=== PATIENT | male | born 1965 | race Caucasian/White ===

== ENCOUNTER → 2016-03-28 | Outpatient (CLI) | payer OTHER ==
--- NOTE | 2016-03-28 19:26 | CONS ---
This is a 50-year-old male patient who is coming in for further evaluation regarding his obstructive sleep apnea. The patient used to live in [place] and his initial sleep evaluation was done at [facility]. He has a home sleep study that showed mild obstructive sleep apnea and he was found to have an AHI of 6.9. Subsequently he was given CPAP at a pressure of 9 cm of water and he is utilizing a Simplus full face mask. His main complaint is that occasionally he is unable to tolerate the mask and he pulls it off and he is looking for alternative masks. He was also told to snore and have some leaks around the mask while using the treatment. I checked his CPAP. I checked his compliance data and the numbers are looking good. His CPAP use has been 100% of the time and CPAP use for more than 4 hours at 25 out of 30, which is at 75%. His leak factor is 14 L and his AHI while on treatment is down to 1.1. He has lost around 20 pounds since his last evaluation and may be partly contributing to the poor tolerability to the CPAP, especially that his baseline SOFI was quiet mild. PAST MEDICAL HISTORY: SOFI, hypothyroidism and diabetes mellitus. Past surgical history is broken wrist. Drug allergies are not known. Medication includes metformin. SOCIAL HISTORY: Nonsmoker. No history of alcohol. No history of IV drugs. Works in construction. FAMILY HISTORY: Noncontributory. REVIEW OF SYSTEMS: Twelve-point review of systems was done. Positive findings are all mentioned above in history of present illness. BP is 139/89, pulse 92, respirations 16, temperature 97.6, saturation 95% on room air. Weight is 201. Height is 5 feet 11 inches and neck size 15-3/4 inches. GENERAL APPEARANCE: Calm, comfortable. HEENT: Negative for JVD. There is no goiter or neck mass. LUNGS: Clear to auscultation. Heart sounds are regular rate and rhythm. Normal S1, S2. ABDOMEN: Soft, nontender. No organomegaly. EXTREMITIES: No edema. No cyanosis or clubbing. IMPRESSION: Mild obstructive sleep apnea with an apnea-hypopnea index of 6.9. The evaluation and treatment was done through [facility] in [place]. The patient was given continuous positive airway pressure at a pressure of 9 cm of water. In the interim, the patient has lost approximately 20 pounds. For now, he is having difficulty in wearing his continuous positive airway pressure and this could be related to the improvement in his sleep breathing disorder in general and poor tolerability to the pressure that was given to him earlier. Another possibility could be the discomfort and poor tolerance of the mask interface. PLAN: 1. I switched this patient to an AirFit F10 mask. 2. Encourage weight loss. 3. May consider lowering the CPAP pressure to a lower level of pressure, especially if he continues to have the same discomfort symptoms. 4. The patient is still willing to use the CPAP knowing that while off the treatment, he is still snoring. He was made aware that his disease is mild; however, despite that, he wants to continue the treatment and he is very much concerned about the snoring and he wants to eliminate the snoring and this has been quite bothersome to his . Will continue to follow. Will see him back in a few months' time in followup.
== END | disposition home or self-care (01) ==
LOC: SLEEP 14:25
PROVIDERS: ATTEND Internal Medicine Critical Care Medicine
DX: G47.33 Obstructive sleep apnea (adult) (pediatric) (principal)
CPT/HCPCS: 99211

== ENCOUNTER → 2016-05-09 | Outpatient (CLI) | payer OTHER ==
--- NOTE | 2016-05-09 22:12 | PN ---
50-year-old male patient seeing me in follow-up regarding obstructive sleep apnea. I did an initial consult with him last month and I reviewed his sleep study that was done at [facility] and back then the patient was found to have an AHI of 6.9. He was being treated with CPAP pressure of 9 cm of water. The patient told me that he had lost weight and he was having difficulty tolerating the higher CPAP pressures and he was pulling off the mask at all times. Based on that, I gave the patient an AirFit F10 fullface mask instead of his Simplus mask. I also lowered his pressure down to 7 mm of water. In follow-up the patient is still having difficulties. The mask is more comfortable; however, he is having snoring with lower CPAP pressure of 7 cm of water. He is interested in bringing the pressure up again. I checked his CPAP compliance. I checked that his AHI is still less than 5 and he does not have any significant leaks around the Simplus full face mask. BP is 115/76, pulse 92, respirations 16, temperature 97.1, saturation 95% on room air. Weight is 205. Height is 5 feet 11 inches. GENERAL APPEARANCE: Calm, comfortable. HEENT: Negative for JVD. There is no goiter, neck masses. LUNGS: Clear to auscultation. HEART: Sounds are regular rate and rhythm. Normal S1, S2. ABDOMEN: Soft, nontender. No organomegaly. EXTREMITIES: No clubbing. No cyanosis or clubbing. IMPRESSION: Obstructive sleep apnea, mild with an AHI of 6.9. Having difficulties with snoring and suboptimal CPAP pressures. PLAN: 1. I will switch this patient to an automatic mode with a pressure minimum of 4 and maximum of 10 and will calculate his P90 pressure in a few months' time. 2. Continue with AirFit F10 mask. 3. Encourage weight loss. 4. We will follow.
== END | disposition home or self-care (01) ==
LOC: SLEEP 16:17
PROVIDERS: ATTEND Internal Medicine Critical Care Medicine
DX: G47.33 Obstructive sleep apnea (adult) (pediatric) (principal); Z99.89 Dependence on other enabling machines and devices

== ENCOUNTER → 2018-04-09 | Outpatient (CLI) | payer OTHER ==
--- NOTE | 2018-04-09 22:10 | PN ---
PROGRESS NOTE This is a 52-year-old male patient coming in for an annual check regarding her obstructive sleep apnea. The patient has mild SOFI with an AHI of 6.9, he was given a Resmet O2 saturation unit which was set at a APAP with a minimum pressure of 4, maximum pressure of 10. On today's evaluation, the patient has no new complaints. His comorbidities include diabetes mellitus, hypothyroidism and is being treated for both. He has had no issues with a heart attack or congestive heart failure, or CVA. No history of any cardiac arrhythmias. He remained extremely compliant with CPAP unit and based on the compliance data over the past 30 days. The patient has utilized a CPAP 29/30 days and he is averaging of 5.9 hours per night with an average P90 pressure of 9.7, leak factor 11 L/minute and his AHI is down to 0.8, while on treatment. The patient has no specific complaints. He is using a AirFit F10 medium-size nose mask. REVIEW OF SYSTEMS: 12-point review of system was done. Positive findings are mentioned above in history of present illness. No hypersomnia or sleepiness. Dover score is down to the 5 no recent weight gain or weight loss. No nighttime nausea, vomiting, heartburn and chest pain, shortness of breath or swelling in lower extremities. No altered mentation. No headaches. No memory deficits. PHYSICAL EXAMINATION: BP is 94/69, pulse 86, respirations 16, temperature 97 saturation 94% on room air. BMI 28.7. Height is 5 feet, weight is 203. General appearance is calm and comfortable head is atraumatic, normocephalic. NECK: Supple. No JVD. No goiter neck mass lungs diminished but otherwise clear. HEART: Sounds regular rate and rhythm. Normal S1, S2. No S3. No murmurs. ABDOMEN: Soft, nontender. No organomegaly. Extremities are no edema. No cyanosis or clubbing. NEUROLOGIC: Alert and oriented x3. No focal neurological deficits. PSYCHIATRIC: Negative for anxiety or depression. IMPRESSION: 1. Mild obstructive sleep apnea with an AHI of 6.9. The patient continues to receive successful APAP treatment. 2. Hypersomnia, recovered; Dover score is down to 5. 3. Snoring resolved. 4. Diabetes mellitus. 5. Hypothyroidism. PLAN: Switch this patient to a Dream wear nose mask full face mask. This an alternative to his F10 full-face mask. If treatment remains successful. The patent compliant. AHI is down to 0.8 while on treatment. His weight is stable. If treatment remains successful, renew supplies and see him back in a year's time, earlier if needed. MMALBERTOL / IJN: [id number] /
== END ==
LOC: SLEEP 16:15
PROVIDERS: ATTEND Internal Medicine Critical Care Medicine
DX: G47.33 Obstructive sleep apnea (adult) (pediatric) (principal); E11.9 Type 2 diabetes mellitus without complications; E03.9 Hypothyroidism, unspecified; Z99.89 Dependence on other enabling machines and devices

== ENCOUNTER → 2018-08-15 | Outpatient (CLI) | payer BC ==
--- NOTE | 2018-08-15 16:48 | MR ---
EXAMINATION TYPE: MR lumbar spine wo con DATE OF EXAM: 08/15/2018 COMPARISON: None HISTORY: compression fx after lifting x 3 weeks TECHNIQUE: Multiplanar, multisequence images of the lumbar spine were acquired. L1-L2: Normal disc appearance without desiccation. No herniation, protrusion or disc bulging. No ca nal stenosis is present. Foramina are patent bilaterally. L2-L3: Normal disc appearance without desiccation. No herniation, protrusion or disc bulging. No ca nal stenosis is present. Foramina are patent bilaterally. L3-L4: Posterior extension of endplate disc complex causes mild anterior mass effect on the thecal sa c. No significant central stenosis. No significant foraminal encroachment. L4-L5: Posterior extension endplate disc complex causes mild anterior mass effect on the thecal sac. There is some facet arthropathy change. No significant central stenosis or foraminal encroachment. L5-S1: Small central posterior disc bulge contacts anterior thecal sac. No significant central stenos is. Lateral extension endplate disc complex causes some mild foraminal encroachment on the right. The re is mild facet arthropathy Lumbar segments are intact. No paraspinal masses are identified. Conus medullaris has a normal appe arance. There are endplate of L4 shows loss of height and there is some associated wall low signal on T1, intermediate to high signal on T2-weighted sequences along this distribution towards the left of midline. There is Schmorl's node formation at the superior endplate of L5, also superior endplate of L4. Lumbar vertebral bodies otherwise show preserved height. Loss of disc height present L3-4 with a ssociated loss of disc signal. IMPRESSION: There is superior endplate depression compatible with patient's history of compression fracture. Form ation. Degenerative disc disease and facet arthropathy.
== END | disposition home or self-care (01) ==
LOC: RADMRIMAIN 10:27
PROVIDERS: ATTEND Family Medicine
DX: M51.36 Other intervertebral disc degeneration, lumbar region (principal); M46.96 Unspecified inflammatory spondylopathy, lumbar region
CPT/HCPCS: 72148

== ENCOUNTER → 2018-08-20 | Outpatient (CLI) | payer BC ==
--- NOTE | 2018-08-20 15:52 | BD ---
EXAMINATION TYPE: Axial Bone Density DATE OF EXAM: 08/20/2018 COMPARISON: NONE CLINICAL HISTORY: collapsed vertebrae Height: 5'11 Weight: 198 FRAX RISK QUESTIONS: History of Fracture in Adulthood: y Secondary Osteoporosis: Current Tobacco Use: y RISK FACTORS HISTORY OF: Spine Fracture: L4 When: 2018 History of Wrist Fracture: left When: 2008 MEDICATIONS: Thyroid Medications: Which medication: Synthroid How Lon years Additional Medications: metformin type 2 diabetes Additional History: EXAM MEASUREMENTS: Bone mineral densitometry was performed using the [employer] System. Bone mineral density about the R hip (g/cm2): 0.863 Bone mineral density about the L hip (g/cm2): 0.917 T Score values are as follows: -----R Neck: -1.3 -----L Neck: -0.9 -----R Total: 0.4 -----L Total: 0.1 Bone mineral density about the R Wrist (g/cm2): 0.799 T Score values are as follows: -----Dist. R+U: 0.1 -----Prox. R+U: 0.6 -----Radius total: 0.7 IMPRESSION: Normal (Values between +1 and -1 indicate normal bone mass). Consider repeating this study in 5 year s or sooner if there is some new clinical indication. NOTE: T-SCORE=SD OF THE YOUNG ADULT MEAN.
== END | disposition home or self-care (01) ==
LOC: RADBDWWP 15:09
PROVIDERS: ATTEND Family Medicine
DX: M48.56XD Collapsed vertebra, not elsewhere classified, lumbar region, subsequent encounter for fracture with routine healing (principal)
CPT/HCPCS: 77080

== ENCOUNTER → 2022-05-31 | Outpatient (CLI) | payer BC ==
--- NOTE | 2022-06-02 10:32 | MR ---
EXAMINATION TYPE: MR neck wo/w con DATE OF EXAM: 05/31/2022 6:47 PM COMPARISON: 04/14/2022 PET/CT. CLINICAL INDICATION:Male, 56 years old with history of R22.1 LOCALIZED SWELLING, MASS AND LUMP, NECK; Squamous cell carcinoma of head/neck, Swelling and lump on right side of neck TECHNIQUE: Multi planar, multi sequence imaging was performed of the neck soft tissues. MR contrast: IV Contrast: 9ml cc Gadavist FINDINGS: There is multiple enlarged lymph nodes within the right neck the largest measuring up to 2 .8 cm in transverse dimension superiorly, previously 1.8 cm. The superior lymph node displaces the in ternal carotid artery medially as well as the internal jugular vein. More inferiorly there is a enlarged cystic lymph node which is necrotic measures up to 2.3 cm, previo usly 2.3 cm in transverse dimension with high T2 signal and layering fluid fluid level. The periphera l soft tissues with increased FDG activity. There is round prominent lymph nodes on the left neck measuring up to 10 mm. Additional left-sided ly mph node and level 3 measuring of 9 mm, previously 6 mm on prior PET/CT The mucosa of the pharynx is not definitively demonstrate asymmetric thickening. Visualized osseous structures are grossly intact. IMPRESSION: 1. Enlarging right level 2A lymph node compared to prior PET/CT. 2. Necrotic level 3 lymph node which had peripheral FDG activity is stable in size from prior PET/CT . 3. Few more prominent left-sided lymph nodes when comparing to prior PET/CT in level 3 that may be f ractionally larger and are indeterminate for metastatic disease. Attention follow-up PET/CT.
== END | disposition home or self-care (01) ==
LOC: RADMRIMAIN 17:51
PROVIDERS: ATTEND Student in an Organized Health Care Education/Training Program
DX: C44.42 Squamous cell carcinoma of skin of scalp and neck (principal); R59.0 Localized enlarged lymph nodes
CPT/HCPCS: 70543; A9585

== ENCOUNTER → 2022-06-05 | Outpatient (CLI) | payer BC ==
[2022-06-05 07:06] LABS: African American GFR (CKD) >90 (>60 ml/min/1.73 sqM); Blood Urea Nitrogen 15 mg/dL (9-20); Non-African American GFR(CKD) >90 (>60 ml/min/1.73 sqM)
[2022-06-05 07:46] LABS: Basophils # (A) 0.1 k/uL (0-0.2); Basophils % (A) 1 %; Eosinophils # (A) 0.3 k/uL (0-0.7); Eosinophils % (A) 4 %; HCT 41.8 % (39.0-53.0); HGB 14.5 gm/dL (13.0-17.5); Lymphocytes # (A) 2.6 k/uL (1.0-4.8); Lymphocytes % (A) 38 %; MCH 32.1 pg (25.0-35.0); MCHC 34.6 g/dL (31.0-37.0); MCV 92.7 fL (80.0-100.0); Mean Platelet Volume 8.2; Monocytes # (A) 0.4 k/uL (0-1.0); Monocytes % (A) 6 %; Neutrophils # (A) 3.4 k/uL (1.3-7.7); Neutrophils % (A) 49 %; Platelet Count 187 k/uL (150-450); RBC 4.51 m/uL (4.30-5.90); RDW 12.7 % (11.5-15.5); WBC 6.9 k/uL (3.8-10.6)
--- NOTE | 2022-06-05 08:35 | CT ---
EXAMINATION TYPE: CT neck chest w con CT DLP: 1136 mGycm, Automated exposure control for dose reduction was used. DATE OF EXAM: 06/05/2022 7:43 AM COMPARISON: MRI Neck 05/31/2022. PET/CT 04/14/2022 CLINICAL INDICATION:Male, 56 years old with history of C76.0, Neck mass, observe for METS TECHNIQUE: Standard enhanced CT of the neck. Axial sections with coronal and sagittal reformats were obtained. Contrast used:100 mL of Isovue 300 with IV Contrast, Oral contrast used: none. Multiple axial images were obtained through the chest. Sagittal and coronal reformats were created fo r review. Contrast used:100 mL of Isovue 300 with IV Contrast Oral contrast used: none. FINDINGS: Brain: Visualized portions are grossly unremarkable. Orbits: Unremarkable Sinuses: Grossly unremarkable. Spaces of the neck: There is multiple enlarged lymph nodes within the right neck , level 2 measuring up to 3.2 x 1.9 cm s uperiorly which may be fractionally larger previously 3.1 x 1.7 cm on PET/CT imaging. The superior ly mph node displaces the internal carotid artery medially as well as the internal jugular vein. More inferiorly in the area of palpable abnormality marker there is a enlarged cystic lymph node whic h is necrotic measures up to 3.3 x 2.6 cm previously 3.1 x 2.3 cm with peripheral soft tissue circumf erentially. There is round prominent lymph nodes on the left neck measuring up to 8 mm on axial imaging in short axis previously 6 mm series 3 image 49 and stable 6 mm lymph node just deep to the sternocleidomastoi d muscle on series 3 image 46 measuring 6 mm in short axis when compared to prior PET/CT 04/14/2022. Musculoskeletal: No acute osseous pathology. Lymph nodes: Multiple nonenlarged lymph nodes are seen along both anterior chains of the neck. Vascular structures: Visualized major arteries are patent without evidence of aneurysm. Thoracic Inlet/airway: Airway is patent. The lung apices are clear. Soft tissues/Thyroid: Thyroid and remainder of the soft tissues are unremarkable. Other: none. LUNGS/ PLEURA: Mild centrilobular emphysema changes are seen throughout the lungs. Right upper lobe o pacities series 6 image 28 which are subsolid not definitively masslike. Intrafissural lymph node ser ies [address] neck imaging. No definitive pulmonary metastatic disease visualized. AIRWAY: Patent and unremarkable. HEART: Size within normal limits. MEDIASTINUM: No gross evidence of adenopathy. VASCULATURE: No aortic aneurysm. MUSCULOSKELETAL: No acute osseous abnormalities SOFT TISSUES/LYMPH NODES: Unremarkable. UPPER ABDOMEN: Gastrohepatic ligament prominent lymph nodes measuring 9 mm in short axis. Small hiata l hernia. There is a 3.1 x 3.8 cm vascular abnormality within the liver series 6 image 61. There may be an additional enhancement areas in the liver on series 6 image 58 measuring 12 mm and laterally me asuring 16 mm. IMPRESSION 1. Measuring for size is more accurate on this CT when compared to MR due to resolution in slice bambi ection, there is Enlarging right level 2A lymph node compared to prior PET/CT. Enlarging Necrotic lev el 3 lymph node which had peripheral FDG on prior PET/CT. 2. Nonenlarged by CT criteria prominent left-sided lymph nodes when comparing to prior PET/CT in lev el 3, may be fractionally larger and are indeterminate for metastatic disease. Attention follow-up PE T/CT. 3. Abnormal areas of enhancement within the liver. Attention multiphase MRI liver mass protocol. 4. Right upper lobe small opacities within the lung which are new and indeterminate could represent infectious/inflammatory process. Attention follow-up imaging.
[2022-06-05 09:34] LABS: ALT 30 U/L (4-49); Albumin/Globulin Ratio 1.5; Anion Gap 8 mmol/L; Calcium 9.3 mg/dL (8.4-10.2); Carbon Dioxide 25 mmol/L (22-30); Chloride 106 mmol/L (98-107); Globulin 2.9 g/dL; Glucose 155 mg/dL (74-99); Sodium 139 mmol/L (137-145); Total Bilirubin 0.9 mg/dL (0.2-1.3)
[2022-06-05 13:27] LABS: Potassium 5.5 mmol/L (3.5-5.1)
[2022-06-05 13:28] LABS: AST 47 U/L (17-59); Alkaline Phosphatase 44 U/L (38-126); Magnesium 1.8 mg/dL (1.6-2.3)
[2022-06-05 13:29] LABS: Albumin 4.3 g/dL (3.5-5.0); Total Protein 7.2 g/dL (6.3-8.2)
== END | disposition home or self-care (01) ==
LOC: RADCTMAIN 06:08
PROVIDERS: ATTEND Internal Medicine Hematology & Oncology
DX: C76.0 Malignant neoplasm of head, face and neck (principal); K76.89 Other specified diseases of liver; R91.8 Other nonspecific abnormal finding of lung field
CPT/HCPCS: 80053; 83735; 85025; 70491; 71260; 36415; Q9967

== ENCOUNTER → 2022-10-30 | Outpatient (CLI) | payer BC ==
[2022-10-30 07:27] LABS: African American GFR (CKD) 86 (>60 ml/min/1.73 sqM); Blood Urea Nitrogen 20 mg/dL (9-20); Non-African American GFR(CKD) 74 (>60 ml/min/1.73 sqM)
--- NOTE | 2022-10-30 08:17 | CT ---
EXAMINATION TYPE: CT soft tissue neck w con CT DLP: 487.3 mGycm, Automated exposure control for dose reduction was used. DATE OF EXAM: 10/30/2022 8:05 AM COMPARISON: CT neck chest 06/05/2022, MR neck 05/31/2022, PET/CT 04/14/2022. CLINICAL INDICATION:Male, 57 years old with history of C02.8 MALIGNANT NEOPLASM OF OVERLAPPING SITES OF T; PHH, neck ca follow up TECHNIQUE: Standard enhanced CT of the neck following intravenous administration of 100 cc of Isovue 300. Axial sections with coronal and sagittal reformats were obtained. FINDINGS: Brain: Visualized portions are grossly unremarkable. Sinuses: Grossly unremarkable. Spaces of the neck: Significant decrease in size of right neck lymph nodes from prior examination with residual level 3 1 .0 x 0.7 cm lymph node at the level of the hyoid bone (series 3, image 50), previously 3.3 x 2.6 cm. Additional large right level 2 lymph node measuring 3.2 x 1.9 cm is not visualized on today's exam. Decreased size of left neck lymph nodes from prior examination with largest measuring 0.[address] axis (series 3, image 59). Musculoskeletal: No acute osseous pathology. Lymph nodes: Multiple nonenlarged lymph nodes are seen along both anterior chains of the neck. Vascular structures: Visualized major arteries are patent without evidence of aneurysm. Mild atherosc lerotic calcification at the carotid bulbs bilaterally. Thoracic Inlet/airway: Airway is patent. The lung apices are clear. Mild centrilobular emphysematous changes. Soft tissues/Thyroid: Thyroid and remainder of the soft tissues are unremarkable. Other: none. IMPRESSION Positive response to therapy with significant decrease in size of right-sided neck lymphadenopathy wi th additional decrease in size of left-sided neck lymph nodes. Residual 1.0 x 0.7 cm right level 3 ly mph node demonstrated, previously 3.3 x 2.6 cm. Attention on follow-up exam.
== END | disposition home or self-care (01) ==
LOC: RADCTMAIN 06:49
PROVIDERS: ATTEND Radiology Radiation Oncology
DX: C77.0 Secondary and unspecified malignant neoplasm of lymph nodes of head, face and neck (principal); C02.8 Malignant neoplasm of overlapping sites of tongue; C09.1 Malignant neoplasm of tonsillar pillar (anterior) (posterior)
CPT/HCPCS: 82565; 84520; 70491; 36415; Q9967

== ENCOUNTER → 2023-02-07 | Outpatient (CLI) | payer BC ==
--- NOTE | 2023-02-07 14:54 | FL ---
EXAMINATION TYPE: FL barium swallow w video DATE OF EXAM: 02/07/2023 CLINICAL HISTORY: 57-year-old male C02.8, malignant neoplasm of head and neck status post radiation t herapy. Some trouble swallowing. TECHNIQUE: Deglutition study is performed utilizing thin liquid barium, barium thick applesauce, and barium coated cracker. Total fluoroscopy time: 1 minute 24 seconds DOSE AREA PRODUCT (DAP) UGY*M,MGY*CM: 10 Total images: None. Real-time fluoroscopy support was provided to speech pathology. COMPARISON: None. FINDINGS: There is intermittent thin liquid free spilling to the level of the piriform sinuses indicating delay ed swallow. Intermittent mild to moderate residuals are seen along the posterior tongue base and vall ecula especially with thicker consistencies. Mild epiglottic thickening likely post treatment change. The oral and pharyngeal phases show satisfactory initiation and propagation with all modalities teste d. Normal mastication is seen with solid modalities tested. There is intermittent transient penetra tion with thin liquids. No other penetration or aspiration is seen. IMPRESSION: Transient penetration with thin liquids and mildly delayed swallow. Residuals along the posterior ton anthony base and vallecula. No aspiration. Some soft tissue thickening of the epiglottis likely post radi ation therapy change. Please refer to speech therapist notes for further details if necessary.
== END | disposition home or self-care (01) ==
LOC: RADFLMAIN 11:23
PROVIDERS: ATTEND Radiology Radiation Oncology
DX: C02.8 Malignant neoplasm of overlapping sites of tongue (principal); C09.1 Malignant neoplasm of tonsillar pillar (anterior) (posterior); C77.0 Secondary and unspecified malignant neoplasm of lymph nodes of head, face and neck
CPT/HCPCS: 74230

== ENCOUNTER → 2023-04-27 | Outpatient (CLI) | payer BC ==
--- NOTE | 2023-04-29 19:56 | PE ---
EXAMINATION TYPE: PET CT fusion skull to thigh DATE OF EXAM: 04/27/2023 CLINICAL INDICATION:Male, 57 years old with history of C76.0 Head and neck ca; TECHNIQUE: Following the intravenous administration of 8.49 mCi of F-18 FDG, whole body images are performed from the skull base to the midthigh. Images are reviewed on the computer in the coronal, a xial, and sagittal planes. Reconstructed rotating images are created on independent workstation and reviewed on the computer. A non-contrast CT is performed in conjunction with the PET scan. Glucose level 131 mg/dL CT DLP: 696 mGycm, Automated exposure control for dose reduction was used. COMPARISON: CT 10/30/2022, PET/CT 04/14/2022, FINDINGS: Mediastinal SUV mean is 2.1. Hepatic parenchyma SUV mean is 2.7. SKULL BASE AND NECK: Left neck heterogenous tissue near the carotid space max SUV 3.0, previously 2.3.. Diffuse thyroid gland uptake max SUV 6.9 on the right and 3.2 on the left. Previously 7.9 and 3.2 res pectively. No enlarged or enlarging lymph nodes identified with increased radiotracer uptake. CHEST, MEDIASTINUM, AND HILAR REGION: No suspicious radiotracer activity. ABDOMEN AND PELVIS: No suspicious radiotracer activity. MUSCULOSKELETAL STRUCTURES: No suspicious radiotracer activity. OTHER CT: Atherosclerosis of the coronary arteries. The heart is mildly enlarged for size. Few scatte red colonic diverticula. Prostate gland is enlarged for size measuring 5.3 cm in transverse dimension . IMPRESSION: Persistent left neck heterogenous soft tissue with calcification and mild uptake. Continued surveilla nce recommended. No other new areas of abnormal uptake identified.
== END | disposition home or self-care (01) ==
LOC: RADPETMAIN 06:55
PROVIDERS: ATTEND Radiology Radiation Oncology
DX: M79.89 Other specified soft tissue disorders (principal); C76.0 Malignant neoplasm of head, face and neck; R93.5 Abnormal findings on diagnostic imaging of other abdominal regions, including retroperitoneum; N32.89 Other specified disorders of bladder
CPT/HCPCS: 78815; A9552

== ENCOUNTER → 2023-04-30 | Outpatient (CLI) | payer BC ==
--- NOTE | 2023-05-02 19:05 | CT ---
EXAMINATION TYPE: CT soft tissue neck w con CT DLP: 595 mGycm, Automated exposure control for dose reduction was used. DATE OF EXAM: 04/30/2023 8:17 AM COMPARISON: Pet/CT 04/27/2023. 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 Axial sections with coronal and sagittal reformats were obtained. Contrast used:100 mL of Isovue 300 with IV Contrast, (None if empty) Oral contrast used: (None if empty) FINDINGS: Brain: Visualized portions are grossly unremarkable. Orbits: Unremarkable Sinuses: Grossly unremarkable. Spaces of the neck: No evidence for lymphadenopathy or mass. Area on prior PET correlates with vascul ar calcifications with thin the carotid bifurcation which is slightly tortuous. Contrast imaging allo ws clear delineation of structures. Musculoskeletal: No acute osseous pathology. Lymph nodes: Multiple nonenlarged lymph nodes are seen along both anterior chains of the neck. Vascular structures: Visualized major arteries are patent without evidence of aneurysm. Left vascular calcifications correlate with a tortuous carotid bifurcation with calcifications. No significant yusef nosis. Thoracic Inlet/airway: Airway is patent. The lung apices are clear. Soft tissues/Thyroid: Thyroid and remainder of the soft tissues are unremarkable. Other: none. IMPRESSION Area on prior PET involving the left neck heterogenous soft tissue with calcification and mild uptake correlates with a carotid bifurcation which is slightly tortuous. Contrast imaging allows clear deli neation of structures.No suspicious mass identified. No lymphadenopathy identified.
== END | disposition home or self-care (01) ==
LOC: RADCTMAIN 07:53
PROVIDERS: ATTEND Radiology Radiation Oncology
DX: C77.0 Secondary and unspecified malignant neoplasm of lymph nodes of head, face and neck (principal); C02.8 Malignant neoplasm of overlapping sites of tongue; C09.1 Malignant neoplasm of tonsillar pillar (anterior) (posterior)
CPT/HCPCS: 70491; Q9967

== ENCOUNTER → 2023-05-17 | Outpatient (CLI) | payer BC ==
--- NOTE | 2023-06-03 19:55 | P.PCN ---
Date of Procedure: 05/17/23 Operative Findings: Home sleep study testing Date of services 05/17/2023 Pertinent history This is a 57-year-old male patient with obstructive sleep apnea diagnosed many years back with a baseline AHI of 6.9 and the patient has been successfully treated with an APAP machine pressures of 4/10 cm of water utilizing the AirFit F10 fullface mask. The patient was also diagnosed and treated for squamous cell carcinoma of the base of the tongue and the patient has completed chemoradiation therapy and surgery. The patient has lost considerable amount of weight following his surgery. The patient is currently snoring through his CPAP mask. While in the office, I adjusted his CPAP pressures to a APAP mode pressures of 5/15 cm of water. I kept him on the same mask interface. I ordered a home sleep study to reevaluate his condition Pertinent physical findings The patient has a height of 6 feet, weight is 176 and a BMI of 23.9 Technical description The [employer] apnea link system was used to complete home sleep study. This is a type III home sleep study. The total recording duration was 9 hours and 32 minutes. The study started at 11:39 PM and it ended at 9:11 AM. The study was adequate as the patient had a total of 7 hours and 48 minutes of flow monitoring and 9 hours and 19 minutes of oxygen saturation monitoring Results The respiratory analysis showed a total of 25 obstructive apneas and 27 obstructive hypopneas and the patient's AHI was 6.7. Disease was worsened in supine body position with an AHI of 12.2 while supine Oxygenation analysis The patient had a total of 15 and oxygen desaturation with a pulse ox dropping more than 4%. The baseline pulse ox was 96% when awake. Average pulse ox during sleep was 94% and lowest pulse ox was 82%. Cardiac summary The average heart rate was 68% with a minimum pulse ox of 54% and a maximum pulse ox of 105% Assessment Mild positional obstructive sleep apnea. AHI was at 6.7 however it is worsened in supine body position with an AHI of 12.2 in a supine body position. Mild nocturnal oxygen desaturation with a minimum pulse ox of 82% Body mass index of 23.9 Squamous cell cancer of the base of the tongue Hypothyroidism Diabetes mellitus type 2 Plan The patient has still persistent obstructive sleep apnea which is mild and positional. The disease severity has remained unchanged despite his weight loss. The patient has an APAP machine and currently this machine is set in APAP mode pressures of 5/15 cm of water. My recommendations are to continue using the CPAP as long as the patient is seeing benefit to treatment. He does have residual mild positional obstructive sleep apnea as mentioned. Will keep the same mask interface and updated to an alternative mask if the patient is willing to do so. See him back in the office for further discussion. Will continue to follow.
== END | disposition home or self-care (01) ==
LOC: 3 N SLEEP 16:45
PROVIDERS: ATTEND Internal Medicine Critical Care Medicine
DX: G47.33 Obstructive sleep apnea (adult) (pediatric) (principal); E11.9 Type 2 diabetes mellitus without complications; E03.9 Hypothyroidism, unspecified; C01 Malignant neoplasm of base of tongue; G47.36 Sleep related hypoventilation in conditions classified elsewhere; F17.200 Nicotine dependence, unspecified, uncomplicated; Z68.23 Body mass index [BMI] 23.0-23.9, adult; Z79.84 Long term (current) use of oral hypoglycemic drugs; Z79.890 Hormone replacement therapy

== ENCOUNTER → 2023-08-02 | Outpatient (CLI) | payer BC ==
[2023-08-02 10:29] LABS: African American GFR (CKD) 85 (>60 ml/min/1.73 sqM); Blood Urea Nitrogen 26 mg/dL (9-20); Non-African American GFR(CKD) 74 (>60 ml/min/1.73 sqM)
--- NOTE | 2023-08-02 11:25 | CT ---
EXAMINATION TYPE: CT soft tissue neck w con DATE OF EXAM: 08/02/2023 COMPARISON: 04/30/2023, 10/30/2022, 06/05/2022 HISTORY: 58-year-old male f/u neck cancer TECHNIQUE: Contiguous axial scanning of the soft tissues of the neck performed with IV Contrast, elana ent injected with 100ml mL of Isovue 300. Coronal/sagittal reconstructions performed. CT DLP: 553 mGycm Automated exposure control for dose reduction was used. FINDINGS: Visualized intracranial structures, paranasal sinuses, mastoid air cells appear clear. The nasopharynx and oropharynx appear clear. Improving slight thickening of the epiglottis and cervical mucosal space. No prevertebral soft tissue thickening. Glottic and subglottic structures as well as the tracheal column and visualized upper lungs are clear . Asymmetrically smaller left lobe of the thyroid gland redemonstrated. Bilateral symmetric parotid glands appear satisfactory. A few tiny bilateral cervical lymph nodes remain. Mild to moderate atherosclerotic calcifications rig ht carotid bifurcation and moderate at the left bifurcation redemonstrated. No new neck mass or cervical adenopathy is seen. Bones: No osseous destructive process. IMPRESSION: NO EVIDENCE FOR RECURRENT OR METASTATIC DISEASE. A FEW TINY CERVICAL LYMPH NODES REMAIN ON BOTH SIDES . IMPROVING POSTTREATMENT CHANGE ALONG THE CERVICAL MUCOSAL SPACE.
== END | disposition home or self-care (01) ==
LOC: RADCTMAIN 09:45
PROVIDERS: ATTEND Radiology Radiation Oncology
DX: C02.8 Malignant neoplasm of overlapping sites of tongue (principal); Z08 Encounter for follow-up examination after completed treatment for malignant neoplasm; C09.1 Malignant neoplasm of tonsillar pillar (anterior) (posterior); C77.0 Secondary and unspecified malignant neoplasm of lymph nodes of head, face and neck
CPT/HCPCS: 82565; 84520; 70491; 36415; Q9967

== ENCOUNTER → 2023-08-03 | Outpatient (CLI) | payer BC ==
--- NOTE | 2023-08-05 19:52 | PE ---
EXAMINATION TYPE: PET CT fusion skull to thigh DATE OF EXAM: 08/03/2023 CLINICAL INDICATION:Male, 58 years old with history of C02.8 Head and neck Ca; TECHNIQUE: Following the intravenous administration of 10.5 mCi of F-18 FDG, whole body images are performed from the skull base to the midthigh. Images are reviewed on the computer in the coronal, a xial, and sagittal planes. Reconstructed rotating images are created on independent workstation and reviewed on the computer. A non-contrast CT is performed in conjunction with the PET scan. Glucose level 125 mg/dL CT DLP: 835 mGycm, Automated exposure control for dose reduction was used. COMPARISON: CT None, PET/CT 05/09/2023, FINDINGS: Mediastinal SUV mean is 1.8. Hepatic parenchyma SUV mean is 2.9. SKULL BASE AND NECK: * Left neck heterogenous tissue near the carotid space felt to represent the carotid bifurcation wit h calcification. Max SUV max SUV 2.8, previously 3.0, previously 2.3.. * Diffuse thyroid gland uptake max SUV 7.1, previously 6.9 on the right. No significant uptake withi n the left thyroid gland on today's exam. * No enlarged or enlarging lymph nodes identified with increased radiotracer uptake. CHEST, MEDIASTINUM, AND HILAR REGION: No suspicious radiotracer activity. ABDOMEN AND PELVIS: No suspicious radiotracer activity. MUSCULOSKELETAL STRUCTURES: No suspicious radiotracer activity. OTHER CT: Atherosclerosis of the coronary arteries. The heart is mildly enlarged for size. Few scatte red colonic diverticula. Prostate gland is enlarged for size measuring 5.3 cm in transverse dimension . IMPRESSION: 1. No suspicious uptake. The previous left neck heterogenous soft tissue with calcification with mil d uptake is stable and felt to represent the left carotid bifurcation. 2. Uptake within the right thyroid gland on today's exam compared with thyroid markers.
== END | disposition home or self-care (01) ==
LOC: RADPETMAIN 08:17
PROVIDERS: ATTEND Radiology Radiation Oncology
DX: Z08 Encounter for follow-up examination after completed treatment for malignant neoplasm (principal); C77.0 Secondary and unspecified malignant neoplasm of lymph nodes of head, face and neck; C02.8 Malignant neoplasm of overlapping sites of tongue; C09.1 Malignant neoplasm of tonsillar pillar (anterior) (posterior)
CPT/HCPCS: 78815; A9552

== ENCOUNTER → 2024-02-04 | Outpatient (CLI) | payer BC ==
--- NOTE | 2024-02-04 10:23 | CT ---
EXAMINATION TYPE: CT soft tissue neck w con DATE OF EXAM: 02/04/2024 8:55 AM COMPARISON: 08/02/2023 08/03/2023.. CLINICAL INDICATION: Male, 58 years old with history of C02.8 tongue ca, f/u head/neck cancer TECHNIQUE: Standard enhanced CT of the neck. Axial sections with coronal and sagittal reformats were obtained. Contrast used:100 mL of Isovue 300 with IV Contrast, (None if empty) Oral contrast used: (None if empty) CT DLP: 446.70 mGycm, Automated exposure control for dose reduction was used. FINDINGS: Brain: Visualized portions are grossly unremarkable. Orbits: Unremarkable Sinuses: Grossly unremarkable. Spaces of the neck: Clear and symmetric. Musculoskeletal: No acute osseous pathology. Lymph nodes: Multiple nonenlarged lymph nodes are seen along both anterior chains of the neck. Vascular structures: Patent with atherosclerotic plaque of the internal carotid arteries at the bifur cation. Thoracic Inlet/airway: Airway is patent. The lung apices are clear. Soft tissues/Thyroid: Thyroid and remainder of the soft tissues are unremarkable. Other: none. IMPRESSION: No new or enlarging lymph nodes or masses. Stable appearance of the right neck. [facility], , 02/04/2024 10:20 AM
== END | disposition home or self-care (01) ==
LOC: RADCTMAIN 08:33
PROVIDERS: ATTEND Radiology Radiation Oncology
DX: Z08 Encounter for follow-up examination after completed treatment for malignant neoplasm (principal); C02.8 Malignant neoplasm of overlapping sites of tongue; C09.1 Malignant neoplasm of tonsillar pillar (anterior) (posterior)
CPT/HCPCS: 70491; Q9967